=== PATIENT | female | born 1975 | race American Indian/Alaskan Native ===

== ENCOUNTER 2019-08-17 05:43 | Inpatient (IN) | payer OTHER ==
[2019-08-17] MEDS ORDERED: FAMOTIDINE 20 MG/2 ML INJ IV NR (06:28)
[2019-08-17] MEDS ORDERED: METOCLOPRAMIDE 10 MG/2 ML INJ IV NR (06:28)
[2019-08-17] MEDS ORDERED: BICITRA ORAL LIQD 30ML PO NR (06:28)
--- NOTE | 2019-08-17 06:30 | History and Physical Report ---
History of Present Illness Date of examination: 08/17/19 Date of admission: 08/17/19 05:43 Chief complaint: Repeat C Section History of present illness: Pt is a 44yo BF EDC 08/24/19; EGA 39 0/7 weeks presents for a Repeat C Section with Bilateral Tubal Ligation. She received late care at [facility] since 25 weeks and co-managed by [facility] for AMA, GDM - diet controlled, Previous C Section and Chronic hypertension on Aldomet 250mg TID. records were not available on admission, but obtained before discharge to home. Past History Past Medical History: hypertension, diabetes, other (AMA) Past Surgical History: section Social history: no significant social history, - Obstetrical History Expected Date of Delivery: 08/24/19 Actual Gestation: 39 Week(s) 2 Day(s) Medications and Allergies Allergies Allergy/AdvReac Type Severity Reaction Status Date / Time diazepam [From Valium] AdvReac Unknown Verified 08/17/19 06:59 Home Medications Medication Instructions Recorded Confirmed Last Taken Type Aldomet 250 mg PO TID 08/17/19 08/17/19 08/17/19 06:00 History Aspirin 81 mg PO DAILY 08/17/19 08/17/19 08/16/19 10:00 History Multivitamin Tablet 1 tab PO DAILY 08/17/19 08/17/19 08/16/19 10:00 History Review of Systems All systems: negative - Physical Exam Breasts: Positive: deferred Cardiovascular: Regular rate Lungs: Positive: Clear to auscultation Abdomen: Positive: normal appearance Genitourinary (Female): Positive: normal external genitalia Uterus: Positive: enlarged Extremities: Positive: normal - Obstetrical FHR: category 1 Uterine Contraction Monitor Mode: External Uterine Contraction Pattern: Absent Results Result Diagrams: 08/17/19 22:54 All other labs normal. Assessment and Plan - Patient Problems (1) 39 weeks gestation of Onset Date: 08/17/19 Current Visit: Yes Status: Resolved Plan to address problem: A: IUP @ 39 0/7 weeks Previous C Section Desires permanent sterilization P: Admit to L&D for Repeat C Section with BTL (2) Previous delivery affecting Onset Date: 08/17/19 Current Visit: Yes Status: Resolved
[2019-08-17 06:59] LABS: Basophils % (Auto) 0.3 % (0.0-1.8); Eosinophils # (Auto) 0.1 K/mm3 (0.0-0.4); Eosinophils % (Auto) 0.9 % (0.0-4.3); Hematocrit 35.1 % (30.3-42.9); Hemoglobin 11.2 gm/dl (10.1-14.3); Lymphocytes # (Auto) 2.2 K/mm3 (1.2-5.4); Lymphocytes % (Auto) 29.9 % (13.4-35.0); Mean Corpuscular HGB Conc 32 % (30-34); Mean Corpuscular Volume 75 fl (79-97); Monocytes # (Auto) 0.8 K/mm3 (0.0-0.8); Monocytes % (Auto) 10.6 % (0.0-7.3); Platelet Count 133 K/mm3 (140-440); Red Blood Count 4.69 M/mm3 (3.65-5.03); Red Cell Distribution Width 14.3 % (13.2-15.2)
[2019-08-17] MEDS ORDERED: ceFAZolin/Water 2 GM/20 ML 2 GM/20 ML SYRINGE IV NR (07:00)
[2019-08-17] MEDS ORDERED: OXYTOCIN 20 UNIT/1000ML DRIP 20 UNITS/1,000 ML BAG IV SCH ×2 (07:00→12:00)
[2019-08-17] MEDS: LACTATED RINGERS 1,000 ML IV SCH ×2 (07:18→07:20)
--- NOTE | 2019-08-17 07:39 | Anesthesia Consultation ---
Anesthesia Consult and Med Hx Date of service: 08/17/19 - Airway Anesthetic Teeth Evaluation: Good ROM Head & Neck: Adequate Mental/Hyoid Distance: Adequate Mallampati Class: Class II Intubation Access Assessment: Probably Good - Pulmonary Exam CTA: Yes - Cardiac Exam Cardiac Exam: RRR - Pre-Operative Health Status ASA Pre-Surgery Classification: ASA3 Proposed Anesthetic Plan: Spinal - Pulmonary Hx Asthma: No COPD: No Hx Pneumonia: No - Cardiovascular System Hx Hypertension: Yes (PIH) - Central Nervous System Hx Seizures: No Hx Psychiatric Problems: No - Endocrine Hx Renal Disease: No Hx End Stage Renal Disease: No Hx Non-Insulin Dependent Diabetes: Yes (GDM) Hx Hypothyroidism: No Hx Hyperthyroidism: No - Hematic Hx Sickle Cell Disease: No - Other Systems Hx Alcohol Use: No
--- NOTE | 2019-08-17 07:39 | Anesthesia Day of Surgery ---
Anesthesia Day of Surgery - Day of Surgery Patient Examined: Yes Patient H&P Reviewed: Yes Patient is NPO: Yes (last food 99)
[2019-08-17] MEDS ORDERED: WATER FOR IRRIG STERILE 1,500 ML BOTTLE IR ONE (09:55)
[2019-08-17] MEDS ORDERED: SODIUM CHLORIDE 0.9% IRR 1,500 ML BOTTLE IR ONE (09:55)
[2019-08-17] MEDS ORDERED: OXYTOCIN 10 UNIT/1 ML INJ ONE (09:59)
[2019-08-17] MEDS ORDERED: PHENYLEPHRINE/NS 1,000 MCG/10 ML SYRINGE (OR USE) IV ONE (09:59)
[2019-08-17] MEDS ORDERED: GLYCOPYRROLATE 0.4 MG/2 ML INJ ONE (09:59)
[2019-08-17] MEDS ORDERED: BUPIVACAINE/PF (0.5%) 5 MG/1 ML 30 ML VIAL INFILTRATI ONE (09:59)
[2019-08-17] MEDS ORDERED: DEXMEDETOMIDINE 200 MCG/2 ML VIAL IV ONE (09:59)
[2019-08-17] MEDS ORDERED: KETOROLAC 30 MG/1 ML INJ ONE (10:01)
[2019-08-17] MEDS ORDERED: ONDANSETRON 4 MG/2 ML INJ ONE (10:36)
[2019-08-17] MEDS ORDERED: NalbUPHINE 10 MG/1 ML INJ IV PRN (11:03)
--- NOTE | 2019-08-17 11:03 | Post Anesthesia Evaluation ---
- Post Anesthesia Evaluation Patient Participated: Yes Airway Patent: Yes Stable Respiratory Function: Yes Nausea/Vomiting: No Temp > 96.8F: Yes Pain Manageable: Yes Adequeate Hydration: Yes Anesthesia Complications: No Block Receding Appropriately: Yes
[2019-08-17] MEDS ORDERED: PROMETHAZINE 25 MG TAB PO PRN (11:04)
[2019-08-17] MEDS ORDERED: PROMETHAZINE 25 MG RECT SUPP PR PRN (11:04)
[2019-08-17] MEDS ORDERED: ONDANSETRON 4 MG/2 ML INJ IV PRN (11:04)
[2019-08-17] MEDS ORDERED: NALOXONE 0.4 MG/1 ML INJ IV PRN ×2 (11:04→11:10)
--- NOTE | 2019-08-17 11:09 | Operative Report ---
Operative Report Operative Report: Date of procedure: 08/17/2019 Pre-operative diagnosis: 1. Intrauterine at 39 0/7 weeks 2. Previ ous C Section x 3 3. Desires permanent sterilization Post-operative diagnosis: same with lower uterine segment adhesions Procedure name(s): 1. Repeat low transverse section 2. Bilateral Tubal Ligation Surgeon: Lalo Woo MD Conversion Developer: None Anesthesia: Spinal anesthesia by Mook Yepez CRNA EBL: 800 mL's Findings: A 3351 gm female Apgars 8 at 1 minute 9 at 5 minutes. Clear amniotic fluid. Nuchal cord x 1. Normal uterus with lower uterine segment adhesions. Normal tubes and ovaries bilaterally. Procedure: After the patient was prepped and draped in usual sterile fashion, and after satisfactory level of spinal anesthesia was obtained, the skin knife was used to make a transverse skin incision through the previous skin scars. The incision was incised down to layer of the fascia, which was nicked in the midline and extended laterally using the Bovie cautery. The rectus muscles were dissected off the rectus fascia both superiorly and inferiorly. The rectus bellies in the midline, and the peritoneum was entered under direct visualization. The peritoneal incision was extended superiorly and inferiorly. Extensive lower uterine segment adhesions were taken down using both sharp and blunt dissections. A bladder flap was created and the bladder blade was then placed. The uterus was scored in a curvilinear linear fashion, entered in the midline revealing clear amniotic fluid. The 's head was delivered onto the surgical field with the aid of a vacuum, nuchal cord reduced, and the oropharynx and nasopharynx were bulb suctioned. The rest of the 's body was delivered, cord was doubly clamped and cut and the infant was handed to the awaiting respiratory team. The placenta was manually removed from the uterus, a nd the uterus removed from its normal anatomical position. After gentle uterine lavage, the incision was inspected and found to be without extensions. It was then closed in 2 layers using 0 Vicryl suture in a running interlocking fashion, the second layer imbricating the first. After good hemostasis was achieved, copious amounts or irrigation was performed, and the gutters were suctioned free of blood and blood clots. Attention was then turned to the tubal ligation. First the right fallopian tube was grasped using the Milo, and after identifying the fimbriated end of the tube, the Filsche clip was applied to the proximal portion of the right tube. The same procedure was performed on the left fallopian tube. The left fallopian tube was grasped using the Milo, and after identifying the fimbriated end of the tube, the Filsche clip was applied to the proximal portion of the left tube. Next, the peritoneum was re- approximated using 3-0 Vicryl suture in a running interlocking fashion, and then the rectus muscles were loosely re-approximated using 3-0 Vicryl suture in a [id number] configuration. The fascia was then re-approximated using #1 Vicryl suture in running interlocking fashion. The subcutaneous layer was made hemostatic using Bovie cautery, and the skin edges re-approximated using 4-0 Vicryl suture in a sub-cuticular fashion. Patient tolerated the procedure well was transported to recovery in stable condition.
[2019-08-17] MEDS ORDERED: SENNOSIDES 8.6 MG TAB PO PRN (11:10)
[2019-08-17] MEDS ORDERED: ACETAMINOPHEN 325 MG TAB PO PRN (11:10)
[2019-08-17] MEDS ORDERED: WITCH HAZEL/ GLYCERIN PAD TP PRN (11:10)
[2019-08-17] MEDS ORDERED: LANOLIN/ZINC/DIMETHICONE (LANSINOH) 7 GM TP PRN (11:10)
[2019-08-17] MEDS ORDERED: MAGNESIUM HYDROXIDE (MOM) ORAL LIQD UDC PO PRN (11:10)
[2019-08-17] MEDS ORDERED: D5W/LACTATED RINGERS 1,000 ML IV SCH (12:00)
[2019-08-17] MEDS ORDERED: KETOROLAC 30 MG/1 ML INJ IV SCH (12:00)
[2019-08-17] MEDS: oxyCODONE /ACETAMINOPHEN 5-325MG TAB PO PRN ×2 (14:20→19:55)
[2019-08-17] MEDS: ceFAZolin/NS 1 GM/50 ML 1 GM/50 ML BAG IV SCH ×2 (17:00→23:25)
[2019-08-17] MEDS: KETOROLAC 30 MG/1 ML INJ IV PRN ×2 (17:01→23:21)
[2019-08-17 23:13] LABS: Hematocrit 32.6 % (30.3-42.9); Hemoglobin 10.5 gm/dl (10.1-14.3)
[2019-08-18] MEDS: KETOROLAC 30 MG/1 ML INJ IV PRN (04:41)
[2019-08-18] MEDS: SIMETHICONE 80 MG CHEW TAB PO PRN ×3 (08:41→20:05)
[2019-08-18] MEDS: HYDROcodone/ACETAMINOPHEN 5-325 MG TAB PO PRN ×2 (08:42→18:15)
[2019-08-18] MEDS ORDERED: PRENATAL VIT27-FE FUMARATE-FOLIC ACID VIT TAB PO SCH (10:00)
[2019-08-18] MEDS ORDERED: FERROUS SULFATE 325 MG TAB PO SCH (10:00)
[2019-08-18] MEDS ORDERED: TETANUS,DIPH,PERTUSS(ACELL) VACCINE 0.5 ML SYRINGE IM ONE (12:00)
[2019-08-18] MEDS: oxyCODONE /ACETAMINOPHEN 5-325MG TAB PO PRN ×2 (12:11→23:17)
[2019-08-18] MEDS ORDERED: MEASLES, MUMPS & RUBELLA 12,500 UNIT/0.5 ML VACCINE SUB-Q ONE (12:13)
--- NOTE | 2019-08-18 13:55 | Progress Note ---
Assessment and Plan A: POD#1 s/p Repeat c/s with BTL Bottlefeeding VSS Pain well controlled Reports gas discomfort P: Routine PP/PO orders Encouraged ambulation and Incentive Spirometer Subjective - Subjective Date of service: 08/18/19 Principal diagnosis: POD#1 s/p Repeat c/s with BTL Patient reports: appetite normal, voiding normally, pain well controlled, flatus (Reports having difficulty passing gas. Request medication) : doing well, bottle feeding Objective - Vital Signs Latest vital signs: Vital Signs Temp Pulse Resp BP Pulse Ox 08/18/19 07:31 99.4 F 88 20 142/92 99 08/18/19 04:07 98.0 F 20 141/89 08/17/19 23:37 97.8 F 79 16 128/85 98 08/17/19 21:06 98.0 F 69 20 140/88 97 08/17/19 17:03 97.4 F L 58 L 18 117/84 100 Intake and Output 08/17/19 08/18/19 08/18/19 23:59 07:59 15:59 Intake Total 50 600 Output Total 1600 600 600 Balance -1550 -600 0 Intake: IV 50 ANCEF/NS 1 GM/50 ML 1 gm 50 In 50 ml @ 100 mls/hr IV Q8H [facility] Rx#:[id number] Oral 600 Output: Urine 1600 600 600 Indwelling Catheter 1600 Void 600 600 Other: Total, Intake Amount 240 Total, Output Amount 1600 600 600 # Voids Void 1 - Exam Breasts: Present: normal Cardiovascular: Present: Regular rate, Normal S1, Normal S2, No murmurs Lungs: Present: Clear to auscultation, Normal air movement Abdomen: Present: normal appearance, soft, tenderness (as expected), normal bowel sounds. Absent: distention Vulva: both: normal Uterus: Present: firm, fundal height at umbilicus Extremities: Present: normal Deep Tendon Reflex Grade: Normal +2 Incision: Present: normal, dry, intact, dressed (Pressure dressing CDI)
[2019-08-18] MEDS: IBUPROFEN 800 MG TAB PO PRN ×2 (14:37→20:05)
[2019-08-18] MEDS: ACETAMINOPHEN 500 MG TAB PO SCH (23:17)
[2019-08-19] MEDS: SIMETHICONE 80 MG CHEW TAB PO PRN ×2 (01:45→18:09)
[2019-08-19] MEDS: IBUPROFEN 800 MG TAB PO PRN ×2 (01:45→12:46)
[2019-08-19] MEDS: oxyCODONE /ACETAMINOPHEN 5-325MG TAB PO PRN ×2 (05:28→18:04)
[2019-08-19] MEDS: ACETAMINOPHEN 500 MG TAB PO SCH (06:28)
--- NOTE | 2019-08-19 09:01 | Progress Note ---
Assessment and Plan - Patient Problems (1) 39 weeks gestation of Onset Date: 08/17/19 Current Visit: Yes Status: Resolved (2) Previous delivery affecting Onset Date: 08/17/19 Current Visit: Yes Status: Resolved (3) Status post Onset Date: 08/19/19 Current Visit: Yes Status: Resolved Plan to address problem: A: S/P Repeat C Section with BTL - POD #2 Doing well Asymptomatic anemia - stable P: May go home today. Subjective - Subjective Date of service: 08/19/19 Principal diagnosis: s/p Repeat c/s with BTL - POD #2 Interval history: Pt is feeling well without complaints. Bleeding improved. She is tolerating a reg diet without nausea or vomiting, ambulating and voiding without difficulty. Patient reports: appetite normal, voiding normally, pain well controlled, flatus, ambulating normally, no dizzy ambulation, no nauseated : doing well, nursing well, bottle feeding Objective - Vital Signs Latest vital signs: Vital Signs Temp Pulse Resp BP Pulse Ox 08/19/19 05:28 18 08/19/19 04:25 83 20 146/92 100 08/19/19 01:45 18 08/19/19 00:09 98.2 F 76 20 145/88 99 08/18/19 23:17 18 08/18/19 20:56 98.9 F 81 20 137/88 98 08/18/19 20:05 18 08/18/19 16:05 98.5 F 81 16 149/84 100 Intake and Output 08/18/19 08/19/19 08/19/19 22:59 06:59 14:59 Intake Total 360 240 Balance 360 240 Intake: Oral 360 240 Other: Total, Intake Amount 120 240 # Voids Void 1 1 # Bowel Movements 0 - Exam Breasts: Present: deferred Abdomen: Present: normal appearance, soft Uterus: Present: normal, firm, fundal height below umbilicus Extremities: Present: normal Incision: Present: normal, dry, intact - Labs Labs: Laboratory Tests 08/17/19 08/17/19 08/17/19 06:30 06:30 22:54 WBC 7.4 RBC 4.69 Hgb 11.2 10.5 Hct 35.1 32.6 MCV 75 L MCH 24 L MCHC 32 RDW 14.3 Plt Count 133 L Lymph % (Auto) 29.9 Beaver % (Auto) 10.6 H Eos % (Auto) 0.9 Baso % (Auto) 0.3 Lymph # 2.2 Beaver # 0.8 Eos # 0.1 Baso # 0.0 Seg Neutrophils % 58.3 Seg Neutrophils # 4.3 Blood Type A POSITIVE Antibody Screen Negative
[2019-08-19] MEDS: HYDROcodone/ACETAMINOPHEN 5-325 MG TAB PO PRN (12:45)
--- NOTE | 2019-08-19 13:59 | Discharge Summary ---
Providers - Providers Date of Admission: 08/17/19 05:43 Date of discharge: 08/19/19 Attending physician: PHYLLIS RAMIREZ Primary care physician: PHYLLIS RAMIREZ Hospitalization Reason for admission: section, IUP at term Delivery: Procedure: section, bilateral tubal ligation, repeat low transverse Episiotomy: none Laceration: none Incision: normal Other procedures: tubal ligation complications: none Discharge diagnosis: IUP at term delivered baby: female Hospital course: Pt is a 44yo BF EDC 08/24/19; EGA 39 0/7 weeks who presented for a Repeat C Section with Bilateral Tubal Ligation. She received late care at [facility] since 25 weeks and co-managed by [facility] for AMA, GDM - diet controlled, Previous C Section and Chronic hypertension on Aldomet 250mg TID. She underwent an uncomplicated Repeat C Section with BTL and post operative course was uneventful. By POD #2 she was tolerating a reg diet without nausea or vomiting, ambulating and voiding without difficulty. She was therefore discharged to home on POD #2 in stable condition. Condition at discharge: Good Disposition: [id number] TO HOME OR SELFCARE - Discharge Diagnoses (1) 39 weeks gestation of Status: Resolved (2) Previous delivery affecting Status: Resolved Plan - Discharge Medications Prescriptions: Methyldopa [Aldomet] 250 mg PO TID #90 tablet Ferrous Sulfate [Feosol 325 MG tab] 325 mg PO BID #60 tablet Ibuprofen [Motrin 800 MG tab] 800 mg PO Q6H PRN #30 tablet PRN Reason: Pain, Mild (1-3) oxyCODONE /ACETAMINOPHEN [Percocet 5/325 mg] 1 tab PO Q6H PRN #30 tablet PRN Reason: Pain, Moderate (4-6) Vit-Fe Fumar-FA [ Vitamin] 1 each PO QDAY #30 tablet - Provider Discharge Summary Activity: routine, no sex for 6 weeks, no heavy lifting 4 weeks, no strenuous exercise Diet: routine Instructions: routine Additional instructions: [] Smoking cessation referral if applicable(refer to patient education folder for contact #) [] Refer to [facility]'s [facility] Booklet Call your doctor immediately for: * Fever > 100.5 * Heavy vaginal bleeding ( >1 pad per hour) * Severe persistent headache * Shortness of breath * Reddened, hot, painful area to leg or breast * Drainage or odor from incision. * Keep incision clean and dry at all times and follow doctor's instructions regarding bathing/showering Follow up in office in 1 week for BP check - Follow up plan Follow up: PHYLLIS RAMIREZ MD [Primary Care Provider] - 7 Days
[2019-08-19 17:25] VITALS: BP 142/89
== END 2019-08-19 19:05 | disposition home or self-care (01) | DRG 784 ==
LOC: APU 05:43 → OB 14:11
PROVIDERS: ADMIT Obstetrics & Gynecology; ATTEND Obstetrics & Gynecology
PROC: 10D00Z1 Extraction of Products of Conception, Low, Open Approach (ICD-10-PCS; principal; 2019-08-17)
PROC: 0UL70CZ Occlusion of Bilateral Fallopian Tubes with Extraluminal Device, Open Approach (ICD-10-PCS; 2019-08-17)
PROC: 0UN90ZZ Release Uterus, Open Approach (ICD-10-PCS; 2019-08-17)
PROC: 3E0234Z Introduction of Serum, Toxoid and Vaccine into Muscle, Percutaneous Approach (ICD-10-PCS; 2019-08-18)
PROC: 3E0134Z Introduction of Serum, Toxoid and Vaccine into Subcutaneous Tissue, Percutaneous Approach (ICD-10-PCS; 2019-08-18)
DX: O34.211 Maternal care for low transverse scar from previous cesarean delivery (principal); O10.92 Unspecified pre-existing hypertension complicating childbirth; O24.420 Gestational diabetes mellitus in childbirth, diet controlled; N73.6 Female pelvic peritoneal adhesions (postinfective); O99.02 Anemia complicating childbirth; Z3A.39 39 weeks gestation of pregnancy; Z37.0 Single live birth; Z79.82 Long term (current) use of aspirin; Z79.899 Other long term (current) drug therapy; Z30.2 Encounter for sterilization; Z23 Encounter for immunization
CPT/HCPCS: 36415; 85014; 85018; 85025; 86850; 86900; 86901; G0378; C1765; C9250; J0690; J1885; J2370; J2405; J2590; J2765; J3490; J7120; J7121